=== PATIENT | female | born 1985 | race Two or more races ===

== ENCOUNTER 2018-01-23 13:00 | Inpatient (IN) | payer OTHER ==
[~2018-01-23] VITALS: Ht 157.5 cm; Wt 3.6 kg
[2018-01-23] MEDS ORDERED: OBSTETRIX ONE1 EACH PO (14:15)
[2018-01-23] MEDS ORDERED: INTEGRA PLUS C1 EACH PO (14:15)
== END 2018-02-03 12:15 | disposition home or self-care (01) | DRG 765 ==
LOC: O/R 01-28 07:36 → OB/GYN 01-28 07:36 → LDR 01-28 09:15 → OB/GYN 01-28 12:05 → LDR 01-28 13:00 → O/R 01-28 14:49 → OB/GYN 02-01 11:22
PROVIDERS: Obstetrics & Gynecology Maternal & Fetal Medicine
PROC: 0UT90ZL Resection of Uterus, Supracervical, Open Approach (ICD-10-PCS; 2018-01-28)
PROC: 4A1HXCZ Monitoring of Products of Conception, Cardiac Rate, External Approach (ICD-10-PCS; 2018-01-28)
PROC: 5A1945Z Respiratory Ventilation, 24-96 Consecutive Hours (ICD-10-PCS; 2018-01-28)
PROC: 0BH17EZ Insertion of Endotracheal Airway into Trachea, Via Natural or Artificial Opening (ICD-10-PCS; 2018-01-28)
PROC: 30233M1 Transfusion of Nonautologous Plasma Cryoprecipitate into Peripheral Vein, Percutaneous Approach (ICD-10-PCS; 2018-01-28)
PROC: 30233N1 Transfusion of Nonautologous Red Blood Cells into Peripheral Vein, Percutaneous Approach (ICD-10-PCS; 2018-01-28)
PROC: 30233R1 Transfusion of Nonautologous Platelets into Peripheral Vein, Percutaneous Approach (ICD-10-PCS; 2018-01-28)
PROC: 4A033R1 Measurement of Arterial Saturation, Peripheral, Percutaneous Approach (ICD-10-PCS; 2018-01-28)
PROC: B246ZZZ Ultrasonography of Right and Left Heart (ICD-10-PCS; 2018-01-28)
PROC: 10D00Z0 Extraction of Products of Conception, High, Open Approach (ICD-10-PCS; principal; 2018-01-28 09:15)
PROC: 3E0F7GC Introduction of Other Therapeutic Substance into Respiratory Tract, Via Natural or Artificial Opening (ICD-10-PCS; 2018-01-31)
DX: O32.2XX0 Maternal care for transverse and oblique lie, not applicable or unspecified (principal); T81.19XA Other postprocedural shock, initial encounter; I46.8 Cardiac arrest due to other underlying condition; T81.12XA Postprocedural septic shock, initial encounter; I46.9 Cardiac arrest, cause unspecified; J95.821 Acute postprocedural respiratory failure; D62 Acute posthemorrhagic anemia; O72.1 Other immediate postpartum hemorrhage; T81.4XXA Infection following a procedure, initial encounter; O26.893 Other specified pregnancy related conditions, third trimester; O75.4 Other complications of obstetric surgery and procedures; O99.013 Anemia complicating pregnancy, third trimester; D72.828 Other elevated white blood cell count; O72.3 Postpartum coagulation defects; O34.13 Maternal care for benign tumor of corpus uteri, third trimester; D25.0 Submucous leiomyoma of uterus; D25.2 Subserosal leiomyoma of uterus; Z37.0 Single live birth; Z3A.39 39 weeks gestation of pregnancy

== ENCOUNTER 2023-11-07 12:28 | Emergency (ER) | payer OTHER ==
[~2023-11-07] VITALS: Ht 154.9 cm; Wt 52.6 kg
[~2023-11-07 12:28] MED LIST: INTEGRA PLUS C1 EACH PO; OBSTETRIX ONE1 EACH PO
== END 2023-11-07 14:37 | disposition home or self-care (01) ==
LOC: ER 12:29
DX: M25.562 Pain in left knee (principal)